=== PATIENT | male | born 1945 | race Caucasian/White ===

== ENCOUNTER 2018-10-03 12:30 | Inpatient (IN) | payer MEDICARE, BC ==
[2018-11-02] MEDS ORDERED: LIDOCAINE 1% 20 ML VIAL (10MG/ML) FOR IV START INTRADERMA PRN (05:45)
[2018-11-02] MEDS ORDERED: LACTATED RINGERS 1,000 ML IV ONE ×2 (14:24→15:49)
[2018-11-02] MEDS ORDERED: DEXAMETHASONE SOD PHOS (MDV) 100 MG/10 ML VIAL IVP ONE (14:26)
[2018-11-02] MEDS ORDERED: LIDOCAINE 1% 20 ML VIAL (10MG/ML) FOR IV START INTRADERMA ONE (14:26)
[2018-11-02] MEDS ORDERED: ONDANSETRON 4 MG/2 ML VIAL IVP ONE (14:28)
[2018-11-02] MEDS ORDERED: MIDAZOLAM (PF) 2 MG/2 ML VIAL IVP ONE (14:29)
--- NOTE | 2018-11-02 14:37 | P.ANPRN ---
Procedure Note - Anesthesia - Nerve Block Performed Right Popliteal Single Time Out Performed: Yes Date of Procedure: 11/02/18 Procedure Start Time: 14:27 Procedure Stop Time: 14:34 Location of Patient Procedure: PreOp Indication: Acute Post-Operative Pain, Requested by physician Sedation Type: Sedate with meaningful contact maintained Preparation: Sterile Prep, Sterile Dressing Position: Left Lateral Catheter: None Needle Types: Pajunk Needle Gauge: 20 Technique: Ultrasound Injectate: 0.5% Ropivacaine (see comment for volume) (30 ml) Blood Aspirated: No Pain Paresthesia on Injection Noted: No Resistance on Injection: Normal Events: Uneventful and Well Tolerated
[2018-11-02] MEDS ORDERED: fentaNYL (PF) 50 MCG/ML 2 ML AMP ONE (14:53)
[2018-11-02] MEDS ORDERED: ROPIVACAINE 5 MG/ML 30 ML VIAL ONE (14:53)
[2018-11-02] MEDS ORDERED: PROPOFOL 10 MG/ML 20 ML VIAL IV ONE (14:53)
[2018-11-02] MEDS ORDERED: LIDOCAINE 1% INJ 10MG/ML (20 ML MDV) ONE (14:53)
[2018-11-02] MEDS ORDERED: ePHEDrine SULFATE/0.9% NACL/PF 50 MG/5 ML SYRINGE IV ONE (14:53)
[2018-11-02] MEDS ORDERED: MIDAZOLAM 2 MG/2 ML VIAL ONE (14:53)
[2018-11-02] MEDS ORDERED: MAGNESIUM HYDROXIDE 2,400 MG/10 ML CUP PO PRN (17:25)
[2018-11-02] MEDS ORDERED: hydrOXYzine PAMOATE 25 MG CAP PO PRN (17:25)
[2018-11-02] MEDS ORDERED: NALOXONE 0.4 MG/ML 1 ML VIAL IV PRN (17:25)
[2018-11-02] MEDS ORDERED: HYDROmorphone 0.5 MG/0.5 ML SYRINGE IVP PRN (17:25)
--- NOTE | 2018-11-02 17:25 | P.OP ---
Date of Procedure: 11/02/18 Preoperative Diagnosis: 1. Right end-stage varus ankle arthritis 2. Right cavovarus foot deformity 3. History of poliomyelitis Postoperative Diagnosis: Same Procedure(s) Performed: 1. Right tibiotalar arthrodesis 2. Application of short leg splint by physician, right ankle Anesthesia: nunu DAVID Surgeon: Lenin Boateng Manager Java #1: Apolinar Lawson Estimated Blood Loss (ml): 25 IV fluids (ml): 1,100 Pathology: none sent Condition: stable Disposition: PACU Indications for Procedure: The patient is a very pleasant 72-year-old male with a medical history significant for polio myelitis. He had long-standing history of problems with both of his legs. He has severe cavovarus deformity on the right which resulted in lateral ankle instability and progressively worsening varus ankle arthritis. He was initially managed nonsurgically with a brace and periodic cortisone injections but these ultimately failed to control his symptoms. We discussed surgical treatments for end-stage ankle arthritis. Due to the severe varus deformity to his ankle and lacks lateral ankle ligaments my opinion is that he would do better with an ankle fusion due to the high failure rate of an ankle replacement. The patient agreed to this and requested to go forward with surgery. I long discussion with the patient and his on the potential risks and complications of an ankle fusion including but not limited to risk of ane sthesia, superficial infection, deep infection, delayed wound healing, superficial wound necrosis, deep wound necrosis, damage to local blood vessels or nerves, nonunion of the fusion site, malunion of the fusion site, systematic hardware, recurrent deformity, progression of deformity, continued or worsened pain, difficulty ambulating following surgery, and inability to regain preinjury level of function, DVT, PE, other medical complications, and possibly loss of life or limb. The patient voiced his understanding of these potential complications and also analogies that other less common complications are possible. He provided his verbal and written consent to go forward with surgery. Description of Procedure: The patient was identified in preoperative holding and the correct right ankle was marked with my initials. I reviewed the consent form with the patient and his . All their questions were answered. A popliteal and saphenous nerve block was placed by anesthesia. The patient was then brought back to the operating room. He was positioned on the OR table where a general anesthetic and preoperative antibiotics were given. A tourniquet was applied to the proximal aspect of the right leg. All bony prominences were well-padded. The right leg was then prepped and draped in the standard sterile fashion. Prior to starting surgery timeout was performed identifying the correct patient, operative extremity, and procedure. The patient's leg was then elevated, exsanguinated with an Esmarch bandage, and the tourniquet was inflated to 250 mmHg. I began by outlining a straight anterior approach to the ankle. Skin incision with a scalpel and I took care to develop full-thickness flaps and not undermine the skin edges. A branch superficial peroneal nerve was identified and carefully retracted. The extensor retinaculum was cut directly over the EHL trying to leave the tibialis anterior covered. I then bluntly developed the interval between the tibialis anterior and EHL tendon. Crossing vessels were controlled with electrocautery. The capsulotomy was then performed of the ankle joint. On inspection there was full-thickness cartilage loss from the entire tibial plafond and and almost complete cartilage loss from the talus. Lamina spreaders were used to gain access to the joint and I then very carefully and thoroughly debrided the remaining articular cartilage using a series of osteotomes and curettes. The joint was then thoroughly irrigated with sterile saline. A 2.5 mm drill bit was then used to extensively perforate the exposed subchondral bone of the tibial plafond and and talar dome to facilitate fusion. The bone slurry was left in the joint. Augment was then used to help facilitate fusion and was injected onto the bony surfaces. K wires were then started anteromedially and anterolaterally on the tibia and brought just to the level of the ankle joint. At this point I reduced the ankle and the mortise and verified reduction clinically and radiographically. As I held the reduction an security assistant drove the K wires across the ankle joint into the talus. Partially threaded 5.0 mm screws were placed generating excellent compression across the joint. I then placed a straight anterior fusion plate across the ankle joint. He was positioned and then held in place with olive tipped K wires. A nonlocking and locking 4.5 mm screw were subsequently placed into the talus. I then placed a locking 5.5 mm screw in the most proximal aspect of the oblong hole in the talus generated additional compression. An additional 2 locking 5.5 mm screws were placed in the tibia. Clinically the ankle appeared straight and at neutral. Final fluoroscopic images were taken showing adequate reduction of the ankle and hardware. The wound was then thoroughly irrigated and closed in layers with 0 Vicryl for the capsule, 2-0 Vicryl in the extensor retinaculum, 3-0 Monocryl in the subcu, and 3-0 nylon Allgower modification of the Donati stitch in the skin. The stab incisions from the cannulated screws were closed with interrupted 2-0 nylon. A sterile dressing was applied followed by well-padded bulky Terry splin t with the ankle at neutral. All instrument, sponge, and sharp counts were correct. The patient was then awoken from his anesthetic, transferred to a rney, and brought to recovery having pound procedure well. Apolinar Shipman PA-C was required as a skilled security assistant for patient positioning, retraction, placement of hardware, closure of wound, and application of splint. Plan: The patient is going to be admitted overnight for pain control, IV antibiotics, and internal medicine consultation, and discharge planning. He is remain strictly nonweightbearing on his operative extremity. We will check her 25-hydroxy vitamin D level. Due to weakness in the left leg he may ultimately need discharge to a senior care facility.
[2018-11-02] MEDS: LACTATED RINGERS 1,000 ML IV SCH (18:04)
--- NOTE | 2018-11-02 18:08 | FL ---
Fluoroscopy HISTORY: Open reduction internal fixation 1 minute 19 seconds fluoroscopy time supplied to the referring clinician. 2 intraoperative C-arm luz maria ges document the procedure. See dictated report from orthopedic surgery.
--- NOTE | 2018-11-02 18:08 | XR ---
Limited right ankle HISTORY: Open reduction internal fixation 2 intraoperative C-arm images document the procedure.
[2018-11-02 19:54] VITALS: BMI 30.3
[2018-11-02] MEDS: SODIUM CHLORIDE 0.9% 1,000 ML IV SCH (20:26)
[2018-11-02] MEDS: SENNOSIDES-DOCUSATE SODIUM 1 EACH TAB PO SCH (21:01)
[2018-11-02] MEDS: HYDROcodone/APAP 5-325MG 1 EACH TAB PO PRN (22:29)
[2018-11-03] MEDS: SODIUM CHLORIDE 0.9% 1,000 ML IV SCH ×2 (03:48→11:02)
[2018-11-03] MEDS: MULTIVITAMINS, THERA 1 EACH TAB PO SCH (08:38)
[2018-11-03] MEDS: LACTATED RINGERS 1,000 ML IV SCH (08:40)
[2018-11-03] MEDS: HYDROcodone/APAP 5-325MG 1 EACH TAB PO PRN ×2 (08:47→17:54)
[2018-11-03] MEDS ORDERED: ENOXAPARIN 40 MG/0.4 ML SYRINGE SQ SCH (09:00)
[2018-11-03] MEDS ORDERED: ACETAMINOPHEN TAB 325 MG TAB PO PRN (11:20)
--- NOTE | 2018-11-03 11:39 | P.PN ---
Subjective Progress Note Date: 11/03/18 This patient is a 73- year old male with a past medical history of polio with residual left sided weakness that has followed with Dr. Boateng in the office for his severe right cavovarus foot deformity that resulted in lateral ankle instability and varus ankle arthritis. He was initially managed non-surgically with a brace, cortisone injections. Although, these measures eventually failed to provide relief for his symptoms. Therefore, patient requested surgery for his end-stage ankle arthritis. Patient underwent a right tibiotalar arthrodesis yesterday 11/03/18. Today is post-operative day #1. The patient states his nerve block has worn off, although his pain is well-controlled at the moment. He has been up with physical therapy today, he states he felt unstable due to his left sided weakness. He has not had a bowel movement post-operatively, he denies abdominal pain. He tolerated his breakfast well. He notes tingling that is radiating down his right lower extremity, although he states this has been occurring for "months", and he sees a chiropractor for his chronic back pain. He denies any new complaints. He denies chest pain, shortness of breath, nausea, vomiting. Vital signs stable. Objective - Vital Signs Vital signs: Vital Signs Temp 97.6 F 11/03/18 07:20 Pulse 93 11/03/18 07:20 Resp 16 11/03/18 07:20 BP 131/79 11/03/18 07:20 Pulse Ox 93 L 11/03/18 07:20 Intake & Output 11/02/18 11/03/18 11/03/18 18:59 06:59 18:59 Intake Total 2100 230 180 Output Total 5 475 Balance 2095 -245 180 Intake: IV 2100 Intake, IV Titration 50 Amount ceFAZolin 2 gm In Sodium 50 Chloride 0.9% 50 ml @ 100 mls/hr IVPB Q8HR [facility] Rx# :[id number] Oral 180 180 Output: Urine 475 Estimated Blood Loss 5 Other: Voiding Method Urinal Urinal # Voids 1 - Exam On examination, the patient is sitting up in bed in no apparent distress. He is alert and orientated x3. On inspection of the right lower extremity, there is a bulky Terry dressing in place. The dressing is clean, dry, intact. The toes are warm and well perfused with brisk capillary refill. Left calf is soft and non-te nder to palpation. - Labs CBC & Chem 7: 11/02/18 14:16 Assessment and Plan Assessment: Right end-stage varus ankle arthritis and cavovarus foot deformity status-post right tibiotalar arthrodesis. Post-operative day #1. Plan: - Strict non-weight bearing on operative leg. Use of crutches or walker for ambulation, up with assistance. - Ice and elevate right lower extremity for swelling and pain control. - Keep splint clean, dry, and intact. - 2 doses of post-operative antibiotics complete. - Continue pain management. - Internal medicine consulted for medical management. - Will defer anticoagulation to internal medicine. - Continue physical therapy for gait and balance training. - Anticipate discharge to rehab Wednesday. Patient discussed with Dr. Boateng.
[2018-11-03] MEDS: METOPROLOL TARTRATE 12.5 MG TAB PO SCH ×2 (11:53→20:43)
[2018-11-03] MEDS: LOSARTAN-HCTZ 50-12.5 MG 1 EACH TAB PO SCH (11:53)
[2018-11-03] MEDS: ASPIRIN 81 MG PO SCH (11:54)
[2018-11-03] MEDS: CLOPIDOGREL 75 MG TAB PO SCH (11:54)
[2018-11-03 13:06] LABS: Basophils % (A) 0 %; Eosinophils % (A) 0 %; HCT 46.3 % (39.0-53.0); HGB 15.4 gm/dL (13.0-17.5); Lymphocytes # (A) 0.7 k/uL (1.0-4.8); Lymphocytes % (A) 4 %; MCH 30.1 pg (25.0-35.0); MCHC 33.3 g/dL (31.0-37.0); MCV 90.5 fL (80.0-100.0); Mean Platelet Volume 7.4; Monocytes # (A) 0.9 k/uL (0-1.0); Monocytes % (A) 6 %; Neutrophils # (A) 13.7 k/uL (1.3-7.7); Neutrophils % (A) 89 %; Platelet Count 164 k/uL (150-450); RBC 5.11 m/uL (4.30-5.90); WBC 15.5 k/uL (3.8-10.6)
[2018-11-03 13:14] LABS: Albumin 3.7 g/dL (3.5-5.0); Potassium 3.5 mmol/L (3.5-5.1); Total Bilirubin 1.2 mg/dL (0.2-1.3); Total Protein 6.1 g/dL (6.3-8.2)
--- NOTE | 2018-11-03 20:34 | PN ---
PROGRESS NOTE DATE OF SERVICE: 11/03/2018. CHIEF COMPLAINT: Status post right ankle procedure. HISTORY OF PRESENT ILLNESS: This gentleman is doing well. He is not having a lot of discomfort. He is not having any significant shortness of breath, chills, fever etc. PHYSICAL EXAM: Vital signs are normal. He is afebrile. Head, ears, eyes, nose, mouth, and throat are normal. Chest is clear. Cardiac exam is normal. Abdomen is soft. Dressing is dry. IMPRESSION: 1. Status post procedure on the ankle. 2. Coronary artery disease. PLAN: No change in program. MMODL / IJN: [id number] /
[2018-11-03] MEDS: ATORVASTATIN 40 MG TAB PO SCH (20:43)
[2018-11-03] MEDS: SENNOSIDES-DOCUSATE SODIUM 1 EACH TAB PO SCH (20:43)
--- NOTE | 2018-11-03 23:56 | CONS ---
CONSULTATION . CHIEF COMPLAINT: Arthritis, right ankle. HISTORY OF PRESENT ILLNESS: This 73-year-old white male is admitted for an elective procedure on the right ankle for osteoarthritis. This is been bothering him for a number of years and is aggravated by the fact that he is a victim of polio myelitis which affected his left lower extremity. He has otherwise been in fairly good health. REVIEW OF SYSTEMS: He has had no headaches, other neuromuscular problems, change in vision, hearing, shortness of breath, cough, hemoptysis, murmurs, rheumatic fever, orthopnea, PND, etc. He has a history of hypertension. He has had no hematemesis, melena, hematochezia, jaundice, renal failure, hematuria frequency, urgency, diabetes, etc. Past medical history, family history, personal and social histories otherwise unremarkable and noncontributory. He does have coronary artery disease and has had a stent placed. He is not allergic to any medication. He is on numerous medications details which can be seen in the MAR on his electronic record. He does not smoke and drinks alcohol only occasionally. PHYSICAL EXAMINATION: Blood pressure 131/79, pulse of 93, respirations of 16 and he is afebrile. In general, he appeared to be well developed, well nourished, in no acute distress. Skin color is normal. Skin is warm, dry. Lymph nodes not enlarged. Head, ears, eyes, nose, mouth, and throat were normal. Neck veins are not distended. Carotids normal. Chest is clear. Cardiac exam was normal. Abdomen is soft and nontender. Extremities are normal except for the right ankle. Neurologically he is intact. Pulses good. IMPRESSION: 1. Arthritis right ankle. 2. History of coronary artery disease. 3. Hypertension history. RECOMMENDATIONS: 1. He is doing well. 2. Vital signs are normal and he is having no significant signs or symptoms of any difficulty. Thank you for the consultation. MMODL / IJN: [id number] /
[2018-11-04] MEDS: HYDROcodone/APAP 5-325MG 1 EACH TAB PO PRN ×3 (00:54→22:19)
[2018-11-04] MEDS: SODIUM CHLORIDE 0.9% 1,000 ML IV SCH ×3 (01:00→20:13)
[2018-11-04] MEDS: LACTATED RINGERS 1,000 ML IV SCH (07:01)
[2018-11-04] MEDS: LOSARTAN-HCTZ 50-12.5 MG 1 EACH TAB PO SCH (08:07)
[2018-11-04] MEDS: CLOPIDOGREL 75 MG TAB PO SCH (08:08)
[2018-11-04] MEDS: ASPIRIN 81 MG PO SCH (08:09)
[2018-11-04] MEDS: METOPROLOL TARTRATE 12.5 MG TAB PO SCH ×2 (08:09→20:26)
[2018-11-04] MEDS: MULTIVITAMINS, THERA 1 EACH TAB PO SCH (08:09)
--- NOTE | 2018-11-04 08:15 | P.PN ---
Subjective Progress Note Date: 11/04/18 This patient is a 73- year old male with a past medical history of polio with residual left sided weakness that has followed with Dr. Boateng in the office for his severe right cavovarus foot deformity that resulted in lateral ankle instability and varus ankle arthritis. He was initially managed non-surgically with a brace, cortisone injections. Although, these measures eventually failed to provide relief for his symptoms. Therefore, patient requested surgery for his end-stage ankle arthritis. Patient underwent a right tibiotalar arthrodesis yesterday 11/03/18. Today is post-operative day #2. Patient states his pain is currently well- controlled on oral [place]. He has not required use of IV Dilaudid. He states he's been up this morning to the bathroom and he is remaining nonweightbearing on the operative leg. He states he feels unstable due to his left-sided weakness, although he feels as if he is getting better and transferring. He states he worked with therapy yesterday. Patient states had bowel movement this morning. Patient is tolerating his diet well. He denies any new complaints this morning. Patient denies chest pain, shortness breath, nausea, vomiting, fevers, chills. Vital signs stable. Objective - Vital Signs Vital signs: Vital Signs Temp 98.1 F 11/04/18 01:59 Pulse 71 11/04/18 01:59 Resp 18 11/04/18 01:59 BP 138/76 11/04/18 01:59 Pulse Ox 97 11/04/18 01:59 Intake & Output 11/03/18 11/04/18 11/04/18 18:59 06:59 18:59 Intake Total 1910 Output Total 150 675 Balance 1760 -675 Intake: Intake, IV Titration 750 Amount Sodium Chloride 0.9% 1, 700 000 ml @ 100 mls/hr IV . Q10H [facility] Rx#:[id number] ceFAZolin 2 gm In Sodium 50 Chloride 0.9% 50 ml @ 100 mls/hr IVPB Q8HR [facility] Rx# :[id number] Oral 1160 Output: Urine 150 675 Other: Voiding Method Urinal Urinal # Voids 2 - Exam On examination, the patient is sitting up in the wheelchair in no apparent distress. He is alert and orientated x3. On inspection of the right lower extr emity, there is a bulky Terry dressing in place. The dressing is clean, dry, intact. The toes are warm and well perfused with brisk capillary refill. No pain with PROM of the toes. Patient is able to move the toes without pain or issue. Left calf is soft and non-tender to palpation. - Labs CBC & Chem 7: 11/03/18 12:37 11/03/18 12:37 Labs: Abnormal Lab Results - Last 24 Hours (Table) 11/02/18 11/03/18 11/03/18 Range/Units 14:16 12:37 12:37 WBC 15.5 H (3.8-10.6) k/uL Neutrophils # 13.7 H (1.3-7.7) k/uL Lymphocytes # 0.7 L (1.0-4.8) k/uL Glucose 147 H (74-99) mg/dL Total Protein 6.1 L (6.3-8.2) g/dL Vitamin D 25-Hydroxy 23.7 L (30.0-100.0) ng/mL Assessment and Plan Assessment: Right end-stage varus ankle arthritis and cavovarus foot deformity status-post right tibiotalar arthrodesis. Post-operative day #2. Plan: - Strict non-weight bearing on operative leg. Use of crutches or walker for ambulation, up with assistance. - Continue physical therapy for gait and balance training. - Ice and elevate right lower extremity for swelling and pain control. - Keep splint clean, dry, and intact. - 2 doses of post-operative antibiotics complete. - Continue pain management. - Internal medicine consulted for medical management. - Will defer anticoagulation to internal medicine. - Anticipate discharge to rehab Wednesday. Follow-up appointment in the office in 2 weeks following discharge. Patient discussed with Dr. Boateng.
[2018-11-04] MEDS: ATORVASTATIN 40 MG TAB PO SCH (20:27)
[2018-11-04] MEDS: SENNOSIDES-DOCUSATE SODIUM 1 EACH TAB PO SCH (20:27)
--- NOTE | 2018-11-04 21:17 | PN ---
PROGRESS NOTE CHIEF COMPLAINT: Arthritis, right ankle. HISTORY OF PRESENT ILLNESS: This gentleman is doing well. There has been no interval change. He is awaiting his 3 days stay so that his Medicare will cover his going to [facility]. PHYSICAL EXAM: He is not having a lot of pain. He has no fever, chills, shortness of breath, chest pain etc. Chest is clear. Cardiac exam is normal. Abdomen is soft, nontender. IMPRESSION: Status post procedure on the right ankle for arthritis. PLAN: No change in program. MMODL / IJN: [id number] /
[2018-11-05] MEDS: SODIUM CHLORIDE 0.9% 1,000 ML IV SCH (00:50)
[2018-11-05] MEDS: LACTATED RINGERS 1,000 ML IV SCH (01:01)
[2018-11-05 07:14] VITALS: BP 164/93; PULSE 96; RESP 20; TEMP 98.8
--- NOTE | 2018-11-05 08:10 | P.DS ---
Providers Date of admission: 11/02/18 12:56 Expected date of discharge: 11/05/18 Attending physician: Lenin Boateng Consults: 11/02/18 17:25 Consult Physician Routine Consulting Provider: Warner Robles Consult Reason/Comments: post op medical management Do you want consulting provider notified?: Yes Primary care physician: Pete Daley - Discharge Diagnosis(es) (1) Osteoarthritis of right ankle Current Visit: Yes Status: Acute (2) S/P ankle arthrodesis Current Visit: Yes Status: Acute Hospital Course: This is a 73-year-old male with known history of degenerative arthritis of the right ankle. The patient presents for evaluation. After discussion and consideration patient elects to proceed with right tibiotalar arthrodesis. The patient is seen preoperatively by Dr. Boateng and medically cleared for surgery by their primary care physician. Patient is admitted to [facility] on 11/02/2018 for tibiotalar arthrodesis. The procedures performed without complication or sequelae. The patient is doing well postoperatively. Labs and vital signs are stable on day of discharge. On day of discharge patient's splint is clean, dry and intact. There is no drainage noted at this time. Patient has good range of motion of the toes of the right foot. Sensation is intact. Cap refill is normal at less than 2 seconds. Neurovascular status to the right lower extremity is intact. Patient is discharged to rehab in good condition. Please see med rec for accurate list of home medications. Plan - Discharge Summary Discharge Rx Participant: Yes New Discharge Prescriptions: New Docusate [Colace] 100 mg PO BID #60 capsule Hydrocodone/Acetaminophen [[place] 5-325] 1 tab PO Q6HR PRN 7 Days #30 tab PRN Reason: Pain Calcium Carbonate [Tums] 500 mg PO QID #90 chewable Cholecalciferol (Vitamin D3) [Vitamin D3] 2,000 unit PO DAILY #30 capsule No Action Metoprolol Tartrate [Lopressor] 12.5 mg PO BID Clopidogrel [Plavix] 75 mg PO DAILY Atorvastatin [Lipitor] 40 mg PO HS Aspirin 81 mg PO DAILY Acetaminophen Tab [Tylenol Tab] 650 mg PO Q6H PRN PRN Reason: Pain Losartan/Hydrochlorothiazide [Losartan-Hctz 100-25 mg Tab] 1 tab PO DAILY Discharge Medication List Acetaminophen Tab [Tylenol Tab] 650 mg PO Q6H PRN 11/01/18 [History] Aspirin 81 mg PO DAILY 11/01/18 [History] Atorvastatin [Lipitor] 40 mg PO HS 11/01/18 [History] Clopidogrel [Plavix] 75 mg PO DAILY 11/01/18 [History] Losartan/Hydrochlorothiazide [Losartan-Hctz 100-25 mg Tab] 1 tab PO DAILY 11/01/18 [History] Metoprolol Tartrate [Lopressor] 12.5 mg PO BID 11/01/18 [History] Calcium Carbonate [Tums] 500 mg PO QID #90 chewable 11/04/18 [Rx] Cholecalciferol (Vitamin D3) [Vitamin D3] 2,000 unit PO DAILY #30 capsule 11/04/18 [Rx] Docusate [Colace] 100 mg PO BID #60 capsule 11/04/18 [Rx] Hydrocodone/Acetaminophen [[place] 5-325] 1 tab PO Q6HR PRN 7 Days #30 tab 11/04/18 [Rx] Follow up Appointment(s)/Referral(s): Lenin Boateng MD [Medical Doctor] - 2 Weeks Activity/Diet/Wound Care/Special Instructions: -Strict non-weight bearing on your operative leg. Do not remove your splint; Keep splint clean, dry, and intact -Use crutches, knee scooter, or a walker to ambulate after surgery. -Elevate and ice operative leg to help reduce swelling and control pain. -Take pain medications as prescribed. Take Colace as a stool softener. Internal medicine to manage anti-coagulation. -Vitamin D resulted low at 23.7; take vitamin D and calcium as prescribed. -Follow-up appointment with Dr. Boateng in the office in 2 weeks. -Call the office with any questions or concerns, -[facility] Yang for rehab Discharge Disposition: TRANSFER TO SNF/ECF
[2018-11-05] MEDS: CLOPIDOGREL 75 MG TAB PO SCH (09:46)
[2018-11-05] MEDS: METOPROLOL TARTRATE 12.5 MG TAB PO SCH (09:46)
[2018-11-05] MEDS: ASPIRIN 81 MG PO SCH (09:46)
[2018-11-05] MEDS: LOSARTAN-HCTZ 50-12.5 MG 1 EACH TAB PO SCH (09:47)
[2018-11-05] MEDS: HYDROcodone/APAP 5-325MG 1 EACH TAB PO PRN (09:49)
--- NOTE | 2018-11-05 14:09 | PN ---
PROGRESS NOTE CHIEF COMPLAINT: Arthritis of the right ankle. HISTORY OF PRESENT ILLNESS: This gentleman is stable and having no problems. Apparently the rehab center is going to be taking him today. PHYSICAL EXAMINATION: Chest is clear. Cardiac exam is normal. Abdomen is soft, nontender. Dressing is dry. IMPRESSION: Status post right ankle procedure for osteoarthritis. PLAN: Discharge to rehab today. MMODL / IJN: [id number] /
== END 2018-11-05 11:23 | DRG 494 ==
LOC: 2ORMAIN 11-02 12:56 → 4SSUR 11-02 17:59
PROVIDERS: ADMIT Orthopaedic Surgery; ATTEND Orthopaedic Surgery
PROC: 0SGF04Z Fusion of Right Ankle Joint with Internal Fixation Device, Open Approach (ICD-10-PCS; principal; 2018-11-02 14:45)
DX: M19.071 Primary osteoarthritis, right ankle and foot (principal); Z86.12 Personal history of poliomyelitis; G89.29 Other chronic pain; Q66.1 Congenital talipes calcaneovarus; I10 Essential (primary) hypertension; I25.10 Atherosclerotic heart disease of native coronary artery without angina pectoris; Z79.82 Long term (current) use of aspirin; Z79.899 Other long term (current) drug therapy
CPT/HCPCS: 64445; 80053; 82306; 84132; 85025